=== PATIENT | female | born 1970 | race Caucasian/White ===

== ENCOUNTER 2017-01-19 09:39 | Emergency (ER) | payer BC ==
[2017-01-19 11:12] VITALS: BP 103/61
--- NOTE | 2017-01-19 11:21 | UC ---
Skin Complaint HPI - History of Current Complaint Chief Complaint: UCSkin Time Seen by Provider: 01/19/17 11:14 Stated Complaint: TICK BITE Hx Obtained From: Patient Hx Last Menstrual Period: january 2016 Onset/Duration: Sudden Onset - found a nymph tick on the right upper lateral chest., Lasting Days - 6, Still Present - small wound is healing. Skin Exposure Onset/Duration: Days Ago - 6 Onset Severity: Mild Current Severity: Mild Location: Discrete - right upper lateral back. Character: Redness Aggravating: Nothing Alleviating: Nothing Associated Signs & Symptoms: Positive: Negative Related History: Insect Bite/Sting - nymph tick not available for observation. - Allergy/Home Medications Allergies/Adverse Reactions: Allergies Allergy/AdvReac Type Severity Reaction Status Date / Time Sulfa Antibiotics AdvReac Intermediate Diarrhea Unverified 01/19/17 11:12 Review of Systems Skin: Other - tick bite. All Other Systems Reviewed And Are Negative: Yes PMH/Surg Hx/FS Hx/Imm Hx Previously Healthy: Yes - Surgical History Surgical History: Yes Surgery Procedure, Year, and Place: LUMPECTOMY. 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 Lives: With Family Alcohol Use: Rare Substance Use Type: None Smoking Status (MU): Never Smoked Tobacco Have You Smoked in the Last Year: No Physical Exam Triage Information Reviewed: Yes Appearance: Well-Appearing, No Pain Distress, Well-Nourished Vital Signs: Initial Vital Signs Temp 98.9 F 01/19/17 11:05 Pulse 66 01/19/17 11:05 Resp 16 01/19/17 11:05 BP 103/61 01/19/17 11:05 Pulse Ox 100 01/19/17 11:05 Vital Signs Reviewed: Yes Eyes: Positive: Conjunctiva Clear Neck exam: Normal Respiratory Exam: Normal Cardiovascular Exam: Normal Musculoskeletal Exam: Normal Neurological Exam: Normal Psychological Exam: Normal Skin: Positive: Other - healing tick bite right posterior shoulder, on the lateral back. Course/Dx - Differential Diagnoses - Skin Complaint Differential Diagnoses: Cellulitis, Erythema Nodosum, Tick Born Illness - Diagnoses Provider Diagnoses: Tick bite right shoulder. Discharge - Discharge Plan Condition: Stable Disposition: HOME Prescriptions: DOXYcycline CAP(*) [DOXYcycline 100MG CAP(*)] 100 mg PO DAILY #2 cap Patient Education Materials: Tick Bite (ED), Doxycycline (By mouth)
== END 2017-01-19 11:35 | disposition home or self-care (01) ==
LOC: UCCORT 09:39
DX: S40.261A Insect bite (nonvenomous) of right shoulder, initial encounter (principal); W57.XXXA Bitten or stung by nonvenomous insect and other nonvenomous arthropods, initial encounter; Y92.9 Unspecified place or not applicable; Z88.2 Allergy status to sulfonamides
CPT/HCPCS: 99212; G0463